=== PATIENT | male | born 1995 | race Caucasian/White ===

== ENCOUNTER 2016-10-16 12:57 | Emergency (ER) | payer SELFPAY ==
[~2016-10-16] VITALS: Ht 292.1 cm; Wt 159.5 kg
[2016-10-16 12:59] VITALS: Ht 292.1 cm; Wt 159.5 kg
[2016-10-16] MEDS ORDERED: predniSONE 20 MG TAB PO STA (13:41)
[2016-10-16] MEDS ORDERED: IPRATROPIUM (NEB) 0.5 MG/2.5 ML AMP NEB STA (13:41)
[2016-10-16] MEDS ORDERED: LEVALBUTEROL (NEB) 1.25 MG/0.5 ML AMP INH STA (13:41)
--- NOTE | 2016-10-16 14:48 | RADRPT ---
PROCEDURE: Chest Radiograph. CLINICAL INDICATION: Asthma exacerbation. TECHNIQUE: Single frontal chest radiograph. COMPARISON: None available FINDINGS: The cardiomediastinal silhouette is within normal limits. Study is limited as the bilateral costoph renic angles are clipped from the film. No infiltrate or effusion is seen. The bones are intact. IMPRESSION: 1. Limited study without evidence of acute cardiopulmonary disease. RPTAT: KK .Janes Ortiz MD, MD Date Time Electronically viewed and signed by .Janes Ortiz MD, MD on 10/16/2016 14:48 .B/
[2016-10-16] MEDS ORDERED: AZIT250T94 PO (15:49)
[2016-10-16] MEDS ORDERED: PRED20TA PO (15:49)
[2016-10-16] MEDS ORDERED: ALBU8.5H3 INH (15:49)
[2016-10-16] MEDS ORDERED: BENZ100C70 PO (15:50)
[2016-10-16 15:56] VITALS: RESP 18
--- NOTE | 2016-10-16 16:08 | ERD ---
ER Documentation Chief Complaint Date/Time DATE: 10/16/16 TIME: 15:52 Chief Complaint Complains of SOB and cough HPI Patient is a 20-year-old male who presents to the ED with concerns of shortness of breath and a cough. Patient states he has had a cough now for a week. Patient reports his cough to be productive in nature. Patient states he has yellow phlegm production. Patient states he started feeling short of breath yesterday. Patient states that his shortness of breath became worse this morning. Patient also reports having wheezing. Patient reports tactile fevers. Patient does report taking DayQuil this morning with minimal alleviation of symptoms. Patient denies any nausea, vomiting, chest pain, nausea, vomiting, left upper extremity pain, loss of consciousness. ROS All systems reviewed and are negative except as per history of present illness. Medications Home Meds Active Scripts Benzonatate* (Tessalon Perle*) 100 Mg Capsule, 100 MG PO Q8H Y for COUGH, #20 CAP Prov:JD ASHBY PA-C 10/16/16 Azithromycin* (Zithromax*) 250 Mg Tablet, 250 MG PO .ZPACK DIRECTED, #6 TAB TAKE 500 MG (2 TABS) THE FIRST DAY THEN 250 MG (1 TAB) DAYS 2-5 Prov:JD ASHBY PA-C 10/16/16 Albuterol Sulfate* (Proair HFA*) 8.5 Gm Hfa.aer.ad, 2 PUFF INH Q4, #1 INHALER Prov:JD ASHBY PA-C 10/16/16 Prednisone* (Prednisone*) 20 Mg Tab, 60 MG PO DAILY for 4 Days, TAB Prov:JD ASHBY PA-C 10/16/16 Allergies Allergies: Coded Allergies: No Known Allergy (Unverified , 10/16/16) PMhx/Soc Medical and Surgical Hx: pt denies Medical Hx, pt denies Surgical Hx History of Surgery: No Anesthesia Reaction: No Hx Neurological Disorder: No Hx Respiratory Disorders: No Hx Cardiac Disorders: No Hx Psychiatric Problems: No Hx Miscellaneous Medical Probl: No Hx Alcohol Use: No Hx Substance Use: No Hx Tobacco Use: Yes Smoking Status: Current every day smoker FmHx Family History: No diabetes Physical Exam Vitals Vital Signs Date Time Temp Pulse Resp B/P Pulse Ox O2 Delivery O2 Flow Rate FiO2 6/15/17 14:16 108 20 93 21 10/16/16 12:59 98.8 108 20 163/101 94 Physical Exam GENERAL: Well-developed, well-nourished male. Appears in no acute distress. No nasal flaring, no abdominal retractions, no tripoding. HEAD: Normocephalic, atraumatic. No deformities or ecchymosis. EYE: Pupils equal, round, and reactive to light. EOMs intact. No conjunctival erythema. No eye discharge. ENT: External ear without any masses or tenderness. TM visualized bilaterally, non-erythematous, non-bulging. Nasal mucosa pink with no discharge. Oropharynx is pink without any tonsillar erythema or exudates. No uvula deviation. No kissing tonsils. NECK: Supple. No meningismus. Normal ROM of the neck. LUNGS: Wheezing noted in bilateral lower lobes HEART: Regular rate and rhythm. No murmurs, rubs or gallops. BACK: No midline tenderness. EXTREMITIES: Equal pulses bilaterally. No peripheral clubbing, cyanosis or edema. No unilateral leg swelling. NEUROLOGIC: Alert and oriented to person, place and time. Moving all four extremities. 5/5 strength in all extremities. Normal speech. Steady gait. SKIN: Normal color. Warm and dry. No rashes or lesions. Results 24 hrs Current Medications Medications (Trade) Dose Ordered Sig/Alexia Route PRN Reason Start Time Stop Time Status Last Admin Dose Admin Ipratropium [place] (Atrovent 0.02% (Neb)) 0.5 mg ONCE STAT NEB 10/16/16 13:41 10/16/16 13:43 DC 10/16/16 14:12 Levalbuterol (Xopenex Neb) 5 mg ONCE STAT INH 10/16/16 13:41 10/16/16 13:43 DC 10/16/16 14:12 Prednisone (Prednisone) 60 mg ONCE STAT PO 10/16/16 13:41 10/16/16 13:43 DC 10/16/16 14:02 Procedures/MDM ED COURSE: The patient was stable throughout ED course. I kept the patient and/or family informed of laboratory and diagnostic imaging results throughout the ED course. DIAGNOSTIC IMAGING: Read by radiologist. DIAGNOSTIC IMAGING REPORT Patient: ENEIDA TUBBS : 1995 Age: 20 Sex: M MR #: [id number] [facility] #: [id number] DOS: 10/16/16 1341 Ordering MD: JD ASHBY PA-C Location: [facility] Room/Bed: PROCEDURE: Chest Radiograph. CLINICAL INDICATION: Asthma exacerbation. TECHNIQUE: Single frontal chest radiograph. COMPARISON: None available FINDINGS: The cardiomediastinal silhouette is within normal limits. Study is limited as the bilateral costophrenic angles are clipped from the film. No infiltrate or effusion is seen. The bones are intact. IMPRESSION: 1. Limited study without evidence of acute cardiopulmonary disease. RPTAT: KK .Janes Ortiz MD, MD Date Time Electronically viewed and signed by .Janes Ortiz MD, MD on 2016 14:48 .B/ CC: JD ASHBY PA-C MEDICATIONS GIVEN: Xopenex breathing treatment, ipratropium, Prednisone Patient tolerated medication well with no adverse reactions. MEDICAL DECISION MAKING: This is a 20-year-old male who presents to the ED with a cough 1 week and shortness of breath 1 day. Patient does report wheezing. Vital signs were reviewed. Patient was afebrile. Patient was not hypoxic. ENT exam was normal. Lung exam did reveal bilateral lower lobe wheezing. Patient was given a breathing treatment here in the emergency department. Patient had improved breath sounds upon receiving breathing treatment. Patient had no signs of respiratory distress or respiratory failure. Patient did report feeling much better. Patient's O2 sat was 98% prior to discharge. Chest x-ray was unremarkable. Given these findings, the patient's presentation is most consistent with acute bronchitis with wheezing. I have a much lower clinical concern for pneumonia, meningitis, sinusitis, otitis externa, acute otitis media , strep pharyngitis, epiglottitis or peritonsillar abscess. PRESCRIPTIONS: Zithromax, Albuterol, Tessalon perles, Prednisone DISCHARGE: At this time, patient is stable for discharge and outpatient management. Supportive therapies such as OTC throat lozenges, salt water gurgles, popsicles and jello discussed. I have instructed the patient to follow-up with his/her primary care physician in 1-2 days. I have instructed the patient to promptly return to the ER for any new or worsening symptoms including increased pain, swelling, fever, nausea, vomiting, weakness or difficulty breathing. The patient and/or family expressed understanding of and agreement with this plan. All questions were answered. Home care instructions were provided. Patient's blood pressure was elevated (>120/80) but appears stable without evidence of hypertensive emergency, hypertensive urgency or end-organ failure. I had discussion with the patient about the risks of hypertension. I have advised the patient to follow up with his/her primary care physician for outpatient monitoring and treatment for hypertension in 2-3 days. I have instructed the patient to return to the ER for any new or worsening symptoms including chest pain, shortness of breath, headache, blurred vision, confusion, nausea, vomiting or LOC. Departure Diagnosis: Primary Impression: Acute bronchitis Bronchitis organism: unspecified organism Qualified Code: J20.9 - Acute bronchitis, unspecified organism Additional Impression: Wheezing Condition: Stable Patient Instructions: Bronchitis With Wheezing (Adult) Referrals: [facility] YOU HAVE RECEIVED A MEDICAL SCREENING EXAM AND THE RESULTS INDICATE THAT YOU DO NOT HAVE A CONDITION THAT REQUIRES URGENT TREATMENT IN THE EMERGENCY DEPARTMENT. FURTHER EVALUATION AND TREATMENT OF YOUR CONDITION CAN WAIT UNTIL YOU ARE SEEN IN YOUR DOCTORS OFFICE WITHIN THE NEXT 1-2 DAYS. IT IS YOUR RESPONSIBILITY TO MAKE AN APPOINTMENT FOR FOLOW-UP CARE. IF YOU HAVE A PRIMARY DOCTOR --you should call your primary doctor and schedule an appointment IF YOU DO NOT HAVE A PRIMARY DOCTOR YOU CAN CALL OUR PHYSICIAN REFERRAL HOTLINE AT IF YOU CAN NOT AFFORD TO SEE A PHYSICIAN YOU CAN CHOSE FROM THE FOLLOWING [facility] [address] [facility] [address] [facility] [address] [facility] [address] [facility] [facility] [address] [facility]. [facility]. [address] [facility]. [facility] YOU HAVE RECEIVED A MEDICAL SCREENING EXAM AND THE RESULTS INDICATE THAT YOU DO NOT HAVE A CONDITION THAT REQUIRES URGENT TREATMENT IN THE EMERGENCY DEPARTMENT. FURTHER EVALUATION AND TREATMENT OF YOUR CONDITION CAN WAIT UNTIL YOU ARE SEEN IN YOUR DOCTORS OFFICE WITHIN THE NEXT 1-2 DAYS. IT IS YOUR RESPONSIBILITY TO MAKE AN APPOINTMENT FOR FOLOW-UP CARE. IF YOU HAVE A PRIMARY DOCTOR --you should call your primary doctor and schedule and appointment IF YOU DO NOT HAVE A PRIMARY DOCTOR YOU CAN CALL OUR PHYSICIAN REFERRAL HOTLINE AT . IF YOU CAN NOT AFFORD TO SEE A PHYSICIAN YOU CAN CHOSE FROM THE FOLLOWING [facility] INSTITUTIONS: [facility] [address] [place] [address] [facility] [address] [place], [place] [id number] [place] [address] [address] [place] [address] Additional Instructions: Call your primary care doctor TOMORROW for an appointment during the next 1-2 days.See the doctor sooner or return here if your condition worsens before your appointment time. JD ASHBY PA-C Oct 16, 2016 16:03
== END 2016-10-16 15:58 | disposition home or self-care (01) ==
LOC: FTE 12:57
DX: J20.9 Acute bronchitis, unspecified (principal); R06.2 Wheezing; F17.210 Nicotine dependence, cigarettes, uncomplicated
CPT/HCPCS: 71010; 94640; 99284; J7512